=== PATIENT | male | born 1930 | race Caucasian/White ===

== ENCOUNTER 2016-10-08 15:13 | Inpatient (IN) | payer OTHER ==
[~2016-10-08] VITALS: Ht 177.8 cm; Wt 124.1 kg
[~2016-10-08 15:13] MED LIST: A&D OINTMENT60 GM TP; ADVAIR 250/501 DISK IH; ADVAIR 500-501 EACH IH; ADVAIR HFA120 INHALA IH; AEROECLIPSE1 EACH MC; ALPRAZOLAM1 MG PO; ALTACE10 MG PO; ASPIR 8181 M1 PO; ASPIR-LOW81 MG PO; ASPIRIN81 M1 PO; AZITHROMAX PO; BAYER CHEWABLE81 MG PO; BUMETANIDE1 MG PO; BUMETANIDE2 MG PO; BUMEX0.5 MG PO; CARVEDILOL12.5 MG PO; CARVEDILOL25 MG PO; CARVEDILOL6.25 MG PO; CEFTIN500 MG PO; CLEOCIN300 MG PO; COLACE100 MG PO; COREG6.25 M1 PO; COUMADIN,JANTO2.5 MG PO; COUMADIN,JANTOVE5 MG PO; COUMADIN1 MG PO; COUMADIN3 M1 PO; COUMADIN3 MG PO; CRESTOR5 MG PO; DELTASONE20 MG PO; DIGOX125 MCG PO; DIGOXIN125 MCG PO; DUONEB 2.5-0.5 M3 ML IH; DUONEB3 ML IH; ELIQUIS5 MG PO; FUROSEMIDE40 MG PO; FUROSEMIDE80 MG PO; K-DUR20 MEQ PO; K-Dur PO; K-LOR20 MEQ PO; KLOR-CON 1010 ME1 PO; LASIX40 MG PO; LASIX80 MG PO; LEVOFLOXACIN750 MG PO; LO-DOSE ASPIRIN81 M1 PO; NEURONTIN300 MG PO; NYSTOP60 GM TP; OMEPRAZOLE20 MG PO; POTASSIUM CHLO10 ME4 PO; POTASSIUM CHLO10 MEQ PO; PRAVACHOL40 MG PO; PRAVASTATIN SOD40 MG PO; PREDNISONE10 M1 PO; PREDNISONE10 MG PO; PREDNISONE20 MG PO; PREDNISONE50 MG PO; PRILOSEC20 MG PO; PRILOSEC20.6 MG PO; PROVENTIL,2.5 MG/3 M IH; PROVENTIL2.5 MG/3 M IH; RAMIPRIL10 MG PO; RAMIPRIL2.5 MG PO; ROBITUSSIN100 MG/5 M PO; SIMVASTATIN20 M1 PO; SPIRIVA1 INHALATI IH; TRAMADOL HCL50 MG PO; TUDORZA PRESS400 MCG IH; ULTRAM50 MG; VENTOLIN HFA18 GM IH; VENTOLIN17 GM IH; XANAX0.5 MG PO; XANAX1 MG PO; XARELTO1 EACH PO; ZITHROMAX Z-PA250 MG PO; predniSONE PO
[2016-10-08 16:06] LABS: EOSINOPHIL (%) 1.9 % (0-5); EOSINOPHIL COUNT 0.1 K/uL (0-0.3); HEMATOCRIT 40.7 % (38.0-50.0); IMMATURE GRANULOCYTE (%) 0.2 % (0.0-0.7); IMMATURE GRANULOCYTE COUNT 0.1 K/uL; LYMPHOCYTE COUNT 0.5 K/uL (1.0-2.8); MCH 30.5 PG (29.0-34.0); MCHC 31.2 G/DL (30.0-36.0); MCV 97.6 FL (86-99); MONOCYTE (%) 5.6 % (3-12); MONOCYTE COUNT 0.3 K/uL (0-0.8); NEUTROPHIL (%) 83.4 % (45-76); NEUTROPHIL COUNT 4.5 K/uL (1.8-6.4); RBC DIS.WIDTH-CV 13.9 % (11.8-14.6); RBC DIS.WIDTH-SD 47.9 % (39-53); RED BLOOD COUNT 4.17 M/uL (4.00-5.50); WHITE BLOOD COUNT 5.4 K/uL (4.1-10.2)
[2016-10-08 16:19] LABS: CHLORIDE 99 mEq/L (99-109); POTASSIUM 4.7 mEq/L (3.7-5.4); SODIUM 140 mEq/L (136-147)
[2016-10-08 16:21] LABS: GLUCOSE 136 mg/dL (70-99)
[2016-10-08 16:23] LABS: ANION GAP 9 MEQ/L (2-14); TOTAL BILIRUBIN 0.6 mg/dL (0.0-1.0)
[2016-10-08 16:25] LABS: ALKALINE PHOSPHATASE 63 IU/L (3-129); GFR ESTIMATE (CALCULATED) > 59 mL/min/
[2016-10-08 16:26] LABS: UREA NITROGEN (BUN) 20 mg/dL (9-23)
[2016-10-08 16:29] LABS: TROP-I INTERPRETATION NEGATIVE; TROPONIN-I 0.03 ng/mL (0.0-0.30)
[2016-10-08] MEDS ORDERED: ANORO ELLIPTA1 EACH IH (16:32)
[2016-10-08] MEDS ORDERED: BUMETANIDE1 MG PO (16:33)
[2016-10-08 16:56] LABS: PLAT.SUFFICIENCY DECREASED; PLATELET COUNT 42 K/uL (156-360)
[2016-10-08 18:05] LABS: INFLUENZA A VIRAL ANTIGEN NEGATIVE; INFLUENZA B VIRAL ANTIGEN NEGATIVE
[2016-10-08 21:30] VITALS: BP 121/57
[2016-10-09] VITALS (8 sets, daily range): BP systolic 124–152; BP diastolic 55–74
[2016-10-09 05:52] LABS: HEMATOCRIT 39.3 % (38.0-50.0); MCH 30.5 PG (29.0-34.0); MCHC 31.3 G/DL (30.0-36.0); MCV 97.5 FL (86-99); RBC DIS.WIDTH-CV 13.7 % (11.8-14.6); RBC DIS.WIDTH-SD 49.5 % (39-53); RED BLOOD COUNT 4.03 M/uL (4.00-5.50)
[2016-10-09 05:53] LABS: WHITE BLOOD COUNT 3.2 K/uL (4.1-10.2)
[2016-10-09 06:06] LABS: ALKALINE PHOSPHATASE 50 IU/L (3-129); ANION GAP 7 MEQ/L (2-14); CHLORIDE 99 MEQ/L (99-109); GFR ESTIMATE (CALCULATED) > 59 mL/min/; GLUCOSE 195 mg/dL (70-99); POTASSIUM 5.1 MEQ/L (3.7-5.4); SAMPLE HEMOLYSIS CHECK 0; SAMPLE ICTERIC CHECK 0; SAMPLE LIPEMIA CHECK 0; SODIUM 138 MEQ/L (136-147); TOTAL BILIRUBIN 0.5 MG/DL (0.0-1.0); UREA NITROGEN (BUN) 24 mg/dL (9-23)
[2016-10-09 07:04] LABS: MEAN PLAT.VOLUME 12.8 uM^3 (9.0-12.4); PLATELET COUNT 44 K/uL (156-360)
[2016-10-10] VITALS (10 sets, daily range): BP systolic 126–149; BP diastolic 57–84
[2016-10-10 03:22] LABS: BASE EXCESS 7.3 mEq/L (-3 to +3); BICARBONATE 36.3 mEq/L (22-26); CARBOXY HGB 2.3 % (0-5); METHEMOGLOBIN 1.4 % (0-1.5)
[2016-10-10 03:23] LABS: COMMENTS - BLOOD GASES C+; DEVICE NC; O2 FLOW 4 L/MIN; PCO2 72 mm Hg (35-45); PO2 113 mm Hg (80-100); SITE RR; pH 7.31 (7.35-7.45)
[2016-10-10 04:35] LABS: HEMATOCRIT 42.1 % (38.0-50.0); MCH 30.2 PG (29.0-34.0); MCHC 31.4 G/DL (30.0-36.0); MCV 96.3 FL (86-99); MEAN PLAT.VOLUME 12.6 uM^3 (9.0-12.4); PLATELET COUNT 58 K/uL (156-360); RBC DIS.WIDTH-CV 13.8 % (11.8-14.6); RED BLOOD COUNT 4.37 M/uL (4.00-5.50); WHITE BLOOD COUNT 9.2 K/uL (4.1-10.2)
[2016-10-10 04:36] LABS: TROP-I INTERPRETATION NEGATIVE; TROPONIN-I 0.03 ng/mL (0.0-0.30)
[2016-10-10 04:37] LABS: CHLORIDE 99 MEQ/L (99-109); GFR ESTIMATE (CALCULATED) > 59 mL/min/; GLUCOSE 183 mg/dL (70-99); POTASSIUM 5.3 MEQ/L (3.7-5.4); SODIUM 140 MEQ/L (136-147); UREA NITROGEN (BUN) 33 mg/dL (9-23)
[2016-10-10 05:11] LABS: METH RESISTANT S AUREUS PCR NEGATIVE (NEGATIVE)
[2016-10-10 05:16] LABS: PROBE CHECK PASS; SPECIMEN PROCESSING CONTROL PASS
[2016-10-10 06:38] LABS: ANION GAP 11 MEQ/L (2-14); CHLORIDE 96 MEQ/L (99-109); GFR ESTIMATE (CALCULATED) > 59 mL/min/; GLUCOSE 145 mg/dL (70-99); POTASSIUM 4.5 MEQ/L (3.7-5.4); SAMPLE HEMOLYSIS CHECK 0; SAMPLE ICTERIC CHECK 0; SAMPLE LIPEMIA CHECK 0; SODIUM 140 MEQ/L (136-147); UREA NITROGEN (BUN) 33 mg/dL (9-23)
[2016-10-10 07:16] LABS: EOSINOPHIL (%) 0 % (0-5); HEMATOCRIT 41.3 % (38.0-50.0); IMMATURE GRANULOCYTE (%) 0.3 % (0.0-0.7); LYMPHOCYTE COUNT 0.4 K/uL (1.0-2.8); MCV 96.7 FL (86-99); MONOCYTE (%) 4.5 % (3-12); MONOCYTE COUNT 0.3 K/uL (0-0.8); NEUTROPHIL (%) 90.3 % (45-76); NEUTROPHIL COUNT 6.6 K/uL (1.8-6.4); RBC DIS.WIDTH-CV 13.9 % (11.8-14.6); RBC DIS.WIDTH-SD 49.1 % (39-53); RED BLOOD COUNT 4.27 M/uL (4.00-5.50); WHITE BLOOD COUNT 7.3 K/uL (4.1-10.2)
[2016-10-10 07:42] LABS: HEMATOLOGY COMMENT 1 REV; USER ID NJR
[2016-10-10 07:45] LABS: PLATELET COUNT 50 K/uL (156-360)
[2016-10-11] VITALS: BP 121/55
[2016-10-11 04:00] VITALS: BP 125/64
[2016-10-11 05:28] LABS: EOSINOPHIL (%) 0 % (0-5); IMMATURE GRANULOCYTE (%) 0.4 % (0.0-0.7); LYMPHOCYTE COUNT 0.3 K/uL (1.0-2.8); MONOCYTE (%) 8.5 % (3-12); MONOCYTE COUNT 0.6 K/uL (0-0.8); NEUTROPHIL (%) 87.4 % (45-76); NEUTROPHIL COUNT 6.4 K/uL (1.8-6.4)
[2016-10-11 05:51] LABS: ANION GAP 7 MEQ/L (2-14); CHLORIDE 93 MEQ/L (99-109); GFR ESTIMATE (CALCULATED) > 59 mL/min/; GLUCOSE 141 mg/dL (70-99); POTASSIUM 4.8 MEQ/L (3.7-5.4); SAMPLE HEMOLYSIS CHECK 0; SAMPLE ICTERIC CHECK 0; SAMPLE LIPEMIA CHECK 0; SODIUM 139 MEQ/L (136-147); UREA NITROGEN (BUN) 33 mg/dL (9-23)
[2016-10-11 06:15] LABS: HEMATOCRIT 39.5 % (38.0-50.0); MCH 29.9 PG (29.0-34.0); MCHC 30.6 G/DL (30.0-36.0); MCV 97.5 FL (86-99); RBC DIS.WIDTH-CV 14.1 % (11.8-14.6); RBC DIS.WIDTH-SD 50.9 % (39-53); RED BLOOD COUNT 4.05 M/uL (4.00-5.50); WHITE BLOOD COUNT 7.3 K/uL (4.1-10.2)
[2016-10-11 06:58] LABS: MEAN PLAT.VOLUME 13.1 uM^3 (9.0-12.4); PLAT.SUFFICIENCY DECREASED; PLATELET COUNT 46 K/uL (156-360); USER ID TLW
[2016-10-11 08:00] VITALS: BP 137/72
[2016-10-11 12:00] VITALS: BP 132/58
[2016-10-11 12:16] LABS: MAGNESIUM 2.2 mg/dl (1.3-2.7)
[2016-10-11 16:00] VITALS: BP 138/68
[2016-10-11 19:45] VITALS: BP 142/69
[2016-10-12 00:15] VITALS: BP 156/78
[2016-10-12 08:18] VITALS: BP 149/69
[2016-10-12 08:23] LABS: ANION GAP 7 MEQ/L (2-14); CHLORIDE 93 MEQ/L (99-109); GFR ESTIMATE (CALCULATED) > 59 mL/min/; GLUCOSE 172 mg/dL (70-99); SAMPLE HEMOLYSIS CHECK 0; SAMPLE ICTERIC CHECK 0; SAMPLE LIPEMIA CHECK 0; SODIUM 139 MEQ/L (136-147); UREA NITROGEN (BUN) 34 mg/dL (9-23)
[2016-10-12 11:30] VITALS: BP 144/69
[2016-10-12 15:49] VITALS: BP 149/72
[2016-10-12 19:41] VITALS: BP 151/78
[2016-10-13] VITALS (7 sets, daily range): BP systolic 139–161; BP diastolic 65–83
[2016-10-13 07:05] LABS: EOSINOPHIL (%) 0 % (0-5); IMMATURE GRANULOCYTE (%) 0.2 % (0.0-0.7); LYMPHOCYTE COUNT 0.3 K/uL (1.0-2.8); MONOCYTE (%) 2.5 % (3-12); MONOCYTE COUNT 0.1 K/uL (0-0.8); NEUTROPHIL (%) 91.9 % (45-76); NEUTROPHIL COUNT 5.2 K/uL (1.8-6.4)
[2016-10-13 07:23] LABS: HEMATOCRIT 40.2 % (38.0-50.0); MCH 30.2 PG (29.0-34.0); MCHC 31.3 G/DL (30.0-36.0); MCV 96.4 FL (86-99); RBC DIS.WIDTH-CV 13.7 % (11.8-14.6); RBC DIS.WIDTH-SD 47.9 % (39-53); RED BLOOD COUNT 4.17 M/uL (4.00-5.50); WHITE BLOOD COUNT 5.7 K/uL (4.1-10.2)
[2016-10-13 07:52] LABS: ALKALINE PHOSPHATASE 49 IU/L (3-129); ANION GAP 9 MEQ/L (2-14); CHLORIDE 93 MEQ/L (99-109); GFR ESTIMATE (CALCULATED) > 59 mL/min/; GLUCOSE 157 mg/dL (70-99); SAMPLE HEMOLYSIS CHECK 0; SAMPLE ICTERIC CHECK 0; SAMPLE LIPEMIA CHECK 0; SODIUM 138 MEQ/L (136-147); UREA NITROGEN (BUN) 40 mg/dL (9-23)
[2016-10-13 07:59] LABS: TOTAL BILIRUBIN 0.9 MG/DL (0.0-1.0)
[2016-10-13 08:11] LABS: MEAN PLAT.VOLUME 13.4 uM^3 (9.0-12.4); PLAT.SUFFICIENCY DECREASED; PLATELET COUNT 39 K/uL (156-360); USER ID CCL
[2016-10-14 03:40] VITALS: BP 147/74
[2016-10-14] MEDS ORDERED: ONDANSETRON ODT4 MG PO (06:11)
[2016-10-14] MEDS ORDERED: MILLIPRED DP5 M1 PO (06:11)
[2016-10-14] MEDS ORDERED: MUCINEX600 MG PO (06:11)
[2016-10-14] MEDS ORDERED: CEFTIN500 MG PO (06:11)
[2016-10-14 07:17] LABS: EOSINOPHIL (%) 0 % (0-5); IMMATURE GRANULOCYTE (%) 0.3 % (0.0-0.7); LYMPHOCYTE COUNT 0.2 K/uL (1.0-2.8); MONOCYTE (%) 4.3 % (3-12); MONOCYTE COUNT 0.3 K/uL (0-0.8); NEUTROPHIL (%) 92.8 % (45-76); NEUTROPHIL COUNT 5.4 K/uL (1.8-6.4)
[2016-10-14 07:33] LABS: ALKALINE PHOSPHATASE 45 IU/L (3-129); ANION GAP 5 MEQ/L (2-14); CHLORIDE 94 MEQ/L (99-109); GFR ESTIMATE (CALCULATED) > 59 mL/min/; GLUCOSE 170 mg/dL (70-99); POTASSIUM 5.1 MEQ/L (3.7-5.4); SAMPLE HEMOLYSIS CHECK 0; SAMPLE ICTERIC CHECK 0; SAMPLE LIPEMIA CHECK 0; SODIUM 139 MEQ/L (136-147); UREA NITROGEN (BUN) 45 mg/dL (9-23)
[2016-10-14 08:00] VITALS: BP 155/78
[2016-10-14 08:08] LABS: HEMATOCRIT 39.7 % (38.0-50.0); MCH 30.7 PG (29.0-34.0); MCV 95.9 FL (86-99); RBC DIS.WIDTH-CV 13.5 % (11.8-14.6); RBC DIS.WIDTH-SD 47.5 % (39-53); RED BLOOD COUNT 4.14 M/uL (4.00-5.50)
[2016-10-14 08:14] LABS: MEAN PLAT.VOLUME 13.6 uM^3 (9.0-12.4); PLAT.SUFFICIENCY DECREASED; PLATELET COUNT 32 K/uL (156-360); USER ID STC
[2016-10-14 11:00] VITALS: BP 152/73
[2016-10-14 16:00] VITALS: BP 139/67
== END 2016-10-14 17:15 | disposition hospice, home (50) | DRG 190 ==
LOC: EME 15:13 → EDOF 18:05 → 5WEST 18:05 → EDOF 18:05 → 5WEST 19:42 → 5SOUTH 10-09 15:42 → 4WEST 10-09 15:42 → 5WEST 10-09 15:42 → 3EAST 10-09 19:49 → 4WEST 10-10 03:41 → 5SOUTH 10-11 19:41
PROVIDERS: Emergency Medicine; Family Medicine; Internal Medicine; Nurse Practitioner Adult Health; Physician Assistant Medical
DX: J44.1 Chronic obstructive pulmonary disease with (acute) exacerbation (principal); J96.21 Acute and chronic respiratory failure with hypoxia; I42.0 Dilated cardiomyopathy; I50.32 Chronic diastolic (congestive) heart failure; I10 Essential (primary) hypertension; K21.9 Gastro-esophageal reflux disease without esophagitis; I48.0 Paroxysmal atrial fibrillation; G47.33 Obstructive sleep apnea (adult) (pediatric); D72.810 Lymphocytopenia; E87.70 Fluid overload, unspecified; Z91.19 Patient's noncompliance with other medical treatment and regimen; I08.0 Rheumatic disorders of both mitral and aortic valves; I25.10 Atherosclerotic heart disease of native coronary artery without angina pectoris; F41.9 Anxiety disorder, unspecified; E66.01 Morbid (severe) obesity due to excess calories; D69.59 Other secondary thrombocytopenia; Z87.891 Personal history of nicotine dependence; Z68.38 Body mass index [BMI] 38.0-38.9, adult; I27.2 Other secondary pulmonary hypertension; Z95.810 Presence of automatic (implantable) cardiac defibrillator; Z51.5 Encounter for palliative care; Z66 Do not resuscitate
CPT/HCPCS: 36600; 71010; 71020; 80048; 80048 91; 80053; 82607; 82746; 82803; 82948; 83735; 83880; 83921 90; 84100; 84484; 85025; 85027; 87502; 87641; 93005; 94640; 94640 76; 94644; 94667; 94668; 94799; 99202; 99281; 99285; G0378; J1100; J1940; J2930; J3475; J7050; J7512; J7644